=== PATIENT | female | born 1980 | race Asian ===

== ENCOUNTER 2020-07-18 15:39 | Emergency (ER) | payer BC, MEDICARE ==
[~2020-07-18] VITALS: Ht 154.9 cm; Wt 52.2 kg
[2020-07-18 16:30] VITALS: BP 120/78
== END 2020-07-18 20:43 | disposition home or self-care (01) ==
LOC: ER 15:39
DX: R05 Cough (principal); Z20.828 Contact with and (suspected) exposure to other viral communicable diseases
CPT/HCPCS: 36415; 71045; 87070; 87426; 87804; 87880

== ENCOUNTER → 2020-09-05 | Outpatient (CLI) | payer BC ==
[2020-09-05 17:14] LABS: Urine WBC None Seen /hpf (0 - 5)
[2020-09-05 17:24] LABS: Basophils # (auto) 0.1 10 ^3/uL (0-0.2); Basophils % (auto) 0.8 % (0.0-2.0); Eosinophils # (auto) 0.1 10 ^3/uL (0-0.8); Eosinophils % (auto) 1.8 % (0.0-7.0); Hematocrit 37.4 % (36.0-46.0); Hemoglobin 12.6 g/dL (12.2-16.2); Lymphocytes # (auto) 1.7 10 ^3/uL (0.4-5.4); Lymphocytes % (auto) 26.6 % (10.0-50.0); Mean Corpuscular Hemoglobin 28.8 pg (28.0-32.0); Mean Corpuscular Hgb Conc. 33.8 g/dL (32.0-36.0); Mean Corpuscular Volume 85.2 fL (80.0-100.0); Monocytes # (auto) 0.6 10 ^3/uL (0-1.3); Monocytes % (auto) 9.8 % (0.0-12.0); Neutrophils # (auto) 3.9 10 ^3/uL (1.6-8.6); Platelet Count (auto) 287 10^3/uL (140-450); Red Blood Cells 4.39 10^6/uL (4.0-5.20); Red Cell Distribution Width 13.1 % (11.8-14.3); White Blood Cell 6.5 10^3/uL (4.4-10.8)
[2020-09-05 17:29] LABS: Urine Bacteria NONE SEEN /hpf (None Seen); Urine Blood Negative /uL (Negative); Urine Specific Gravity 1.015 (1.001-1.035)
[2020-09-05 18:02] LABS: Albumin 4.2 g/dL (3.4-5.0); BUN/Creatinine Ratio 14.5; Calcium 8.9 mg/dL (8.5-10.1); Potassium 3.9 mmol/L (3.5-5.1)
[2020-09-05 18:05] LABS: Bilirubin, Total 0.2 mg/dL (0.2-1.0); Total Protein 7.8 g/dL (6.4-8.2)
== END | disposition home or self-care (01) ==
LOC: LAB 17:02
PROVIDERS: ATTEND Internal Medicine
DX: N76.0 Acute vaginitis (principal); R53.83 Other fatigue
CPT/HCPCS: 36415; 80053; 81001; 84439; 84443; 85025; 85652; 87070

== ENCOUNTER → 2025-04-02 | Outpatient (CLI) | payer BC ==
[2025-04-02 11:26] LABS: Hematocrit 40.4 % (36.0-46.0); Hemoglobin 14.0 g/dL (12.2-16.2); Mean Corpuscular Hemoglobin 29.7 pg (28.0-32.0); Mean Corpuscular Volume 85.6 fL (80.0-100.0); Nucleated Red Blood Cells % 0.0 %
[2025-04-02 11:46] LABS: Alanine Aminotransferase 12 U/L (7-40); Alkaline Phosphatase 59 U/L (46-116); Anion Gap 8 (5-15); BUN/Creatinine Ratio 9.7 (10.0-20.0); Bilirubin, Total 0.4 mg/dL (0.2-1.0); Calcium 9.4 mg/dL (8.7-10.4); Carbon Dioxide 28 mmol/L (20-31); Chloride 103 mmol/L (98-107); Glucose 85 mg/dL (74-106); Potassium 4.1 mmol/L (3.5-5.1); Sodium 139 mmol/L (136-145); Total Protein 8.0 g/dL (5.7-8.2)
[2025-04-02 11:49] LABS: Free T3 2.88 pg/mL (2.3-4.2)
[2025-04-02 11:50] LABS: Follicle Stimulating Hormone 5.74 IU/L (SEE BELOW); Free T4 (Free Thyroxine) 1.21 ng/dL (0.89-1.76)
[2025-04-02 11:51] LABS: Thyroid Stimulating Hormone 1.77 uIU/mL (0.55-4.78)
[2025-04-02 12:02] LABS: Albumin 4.8 g/dL (3.2-4.8); Beta HCG, Quantitative 0.1 mIU/mL (1.5-4.2); Blood Urea Nitrogen 7 mg/dL (9-23)
== END | disposition home or self-care (01) ==
LOC: LAB 10:47
PROVIDERS: ATTEND Internal Medicine
DX: E53.8 Deficiency of other specified B group vitamins (principal); N76.0 Acute vaginitis
CPT/HCPCS: 36415; 80053; 82607; 82626; 82670; 82672; 83001; 83002; 83036; 84144; 84146; 84403; 84439; 84443; 84481; 84702; 85025